=== PATIENT | female | born 1965 | race African-American/Black ===

== ENCOUNTER 2019-04-19 11:51 | Inpatient (IN) ==
[2019-04-19 12:57] LABS: Basophils % 0.3 % (0.0-0.8); Eosinophils # 0.1 10*3/uL (0.0-0.87); Eosinophils % 1.2 % (0.00-10.9); Hematocrit 32.1 VOL% (35.7-47.0); Hemoglobin 10.7 GM/DL (12.0-16.0); Immature Granulocytes % 0.5 %; Immature Granulocytes Absolute 0.03 #; Lymphocytes # 0.7 10*3/uL (1.4-4.0); Lymphocytes % 11.9 % (21.3-54.2); Mean Corpuscular HGB Conc 33.3 GM/DL (32-36); Mean Corpuscular Volume 94.1 FL (87-102); Mean Platelet Volume 8.4 FL (9.6-12.0); Monocytes % 12.9 % (1.7-12.7); Neutrophils % 73.2 % (38.7-73.9); Platelet Count 219 T/CUMM (130-400); Red Blood Count 3.41 MC/CUMM (3.8-5.5); Red Cell Distribution Width 19.6 % (9.3-17.3)
[2019-04-19 14:14] LABS: PT Patient Result 10.8 SECS
[2019-04-19 14:18] LABS: Calcium 9.4 MG/DL (8.5-10.1); Osmolality,Calculated 282.3 MOS/KG (273-304)
[2019-04-19] MEDS ORDERED: ACETAMINOPHEN 325 MG TABLET PO PRN (14:55)
[2019-04-19] MEDS ORDERED: ONDANSETRON 4 MG/2 ML VIAL IV PRN (14:55)
[2019-04-19 15:30] LABS: Albumin 3.6 G/DL (3.4-5.0); Total Protein 7.8 G/DL (6.4-8.3)
[2019-04-19] MEDS ORDERED: LORATADINE 10 MG TABLET PO PRN (15:48)
[2019-04-19 17:39] LABS: RBC,Pleural Fluid 7423 T/CUMM
[2019-04-19] MEDS: MOMETASONE 50 MCG NASAL SPRAY 17 GM BOTTLE BOTH NARES SCH (18:18)
[2019-04-19] MEDS: ENOXAPARIN 40 MG/0.4 ML SYRINGE SUBCUT SCH (22:17)
[2019-04-20 01:17] LABS: Apearance,Urine CLEAR (Clear); Bilirubin,Urine Negative (Negative); Blood, Urine Negative (Negative); Glucose,Urine (UA) Negative (Negative); Ketones,Urine 20 mg/dL (Negative); Mucus,Urine Occasional /LPF (Occasional); Nitrite,Urine Negative (Negative); Protein,Urine Negative; RBC,Urine 1 /HPF (0-4); Squamous Epithelial Cell,Urine Occasional /HPF (0-10); Urine Color Yellow (Yellow); Urine Specific Gravity 1.049 (1.001-1.035); Urine Urobilinogen < 2.0 EU/DL (0.2-1.0); WBC,Urine 2 /HPF (0-6)
[2019-04-20 05:50] LABS: Basophils % 0.2 % (0.0-0.8); Eosinophils % 0.2 % (0.00-10.9); Hematocrit 29.5 VOL% (35.7-47.0); Hemoglobin 9.8 GM/DL (12.0-16.0); Immature Granulocytes % 0.3 %; Immature Granulocytes Absolute 0.02 #; Lymphocytes # 0.7 10*3/uL (1.4-4.0); Lymphocytes % 11.4 % (21.3-54.2); Mean Corpuscular HGB Conc 33.2 GM/DL (32-36); Mean Corpuscular Volume 92.8 FL (87-102); Mean Platelet Volume 8.8 FL (9.6-12.0); Monocytes % 14.7 % (1.7-12.7); Neutrophils % 73.2 % (38.7-73.9); Platelet Count 224 T/CUMM (130-400); Red Blood Count 3.18 MC/CUMM (3.8-5.5); Red Cell Distribution Width 19.7 % (9.3-17.3); White Blood Count 6.3 T/CUMM (4-12)
[2019-04-20 06:17] LABS: Albumin 3.3 G/DL (3.4-5.0); Bilirubin,Total 0.6 MG/DL (0.2-1.0); Calcium 9.2 MG/DL (8.5-10.1); Osmolality,Calculated 278.5 MOS/KG (273-304); Total Protein 7.2 G/DL (6.4-8.3)
[2019-04-20] MEDS: PANTOPRAZOLE 40 MG TABLET PO SCH (09:06)
[2019-04-20] MEDS: METHOCARBAMOL 500 MG TABLET PO PRN ×2 (09:06→16:32)
[2019-04-20] MEDS: MOMETASONE 50 MCG NASAL SPRAY 17 GM BOTTLE BOTH NARES SCH (15:11)
[2019-04-20] MEDS: LIDOCAINE 5% PATCH TRANSDERM SCH (16:22)
[2019-04-20] MEDS: SIMETHICONE CHEW 125 MG TABLET PO PRN (16:23)
[2019-04-20] MEDS: LACTULOSE 20 GM/30 ML UDCUP PO PRN (16:24)
[2019-04-20] MEDS ORDERED: SODIUM PHOSPHATE ENEMA 133 ML BOTTLE RECTAL ONE (16:49)
[2019-04-20] MEDS: ENOXAPARIN 40 MG/0.4 ML SYRINGE SUBCUT SCH (20:55)
[2019-04-21 04:53] LABS: Basophils % 0.3 % (0.0-0.8); Eosinophils # 0.1 10*3/uL (0.0-0.87); Eosinophils % 1.2 % (0.00-10.9); Hemoglobin 10.8 GM/DL (12.0-16.0); Immature Granulocytes % 0.9 %; Immature Granulocytes Absolute 0.05 #; Lymphocytes # 0.7 10*3/uL (1.4-4.0); Lymphocytes % 12.2 % (21.3-54.2); Mean Corpuscular HGB Conc 32.7 GM/DL (32-36); Mean Corpuscular Volume 95.1 FL (87-102); Mean Platelet Volume 8.9 FL (9.6-12.0); Monocytes % 14.5 % (1.7-12.7); Neutrophils % 70.9 % (38.7-73.9); Platelet Count 221 T/CUMM (130-400); Red Blood Count 3.47 MC/CUMM (3.8-5.5); Red Cell Distribution Width 19.6 % (9.3-17.3); White Blood Count 5.8 T/CUMM (4-12)
[2019-04-21 05:20] LABS: Calcium 9.3 MG/DL (8.5-10.1); Osmolality,Calculated 278.4 MOS/KG (273-304)
[2019-04-21 07:17] LABS: Monocytes,Pleural Fluid 1 %
[2019-04-21 07:40] LABS: Lymphocytes,Pleural Fluid 38 %; Neutrophils,Pleural Fluid 53 %
[2019-04-21] MEDS: PANTOPRAZOLE 40 MG TABLET PO SCH (08:51)
[2019-04-21] MEDS: LIDOCAINE 5% PATCH TRANSDERM SCH (08:51)
[2019-04-21] MEDS ORDERED: BISACODYL 10 MG SUPP RECTAL ONE (08:53)
[2019-04-21] MEDS ORDERED: SIMETHICONE CHEW 80 MG TABLET PO ONE (08:54)
[2019-04-21] MEDS: MOMETASONE 50 MCG NASAL SPRAY 17 GM BOTTLE BOTH NARES SCH (08:57)
[2019-04-21] MEDS: LEVOFLOXACIN 750 MG TABLET PO SCH (09:36)
[2019-04-21] MEDS ORDERED: VANCOMYCIN INJ 1,750 MG in SODIUM CHLORIDE 0.9% 500 ML IV ONE (10:00)
[2019-04-21] MEDS: ALBUTEROL/IPRATROPIUM 3 ML NEB RESP TX SCH ×2 (13:15→19:30)
[2019-04-21] MEDS: SIMETHICONE CHEW 125 MG TABLET PO PRN (20:30)
[2019-04-21] MEDS: ENOXAPARIN 40 MG/0.4 ML SYRINGE SUBCUT SCH (20:30)
[2019-04-21] MEDS: LACTULOSE 20 GM/30 ML UDCUP PO PRN (20:30)
[2019-04-22] MEDS: ALBUTEROL/IPRATROPIUM 3 ML NEB RESP TX SCH ×2 (00:08→07:51)
[2019-04-22] MEDS: SIMETHICONE CHEW 125 MG TABLET PO PRN ×3 (00:22→12:36)
[2019-04-22] MEDS: METHOCARBAMOL 500 MG TABLET PO PRN (04:20)
[2019-04-22 05:25] LABS: Basophils % 0.4 % (0.0-0.8); Eosinophils # 0.1 10*3/uL (0.0-0.87); Eosinophils % 1.4 % (0.00-10.9); Hemoglobin 10.4 GM/DL (12.0-16.0); Immature Granulocytes % 1.7 %; Immature Granulocytes Absolute 0.12 #; Lymphocytes # 0.8 10*3/uL (1.4-4.0); Mean Corpuscular HGB Conc 32.5 GM/DL (32-36); Mean Corpuscular Volume 94.7 FL (87-102); Mean Platelet Volume 8.2 FL (9.6-12.0); Monocytes % 11.6 % (1.7-12.7); Neutrophils % 73.9 % (38.7-73.9); Platelet Count 232 T/CUMM (130-400); Red Blood Count 3.38 MC/CUMM (3.8-5.5); Red Cell Distribution Width 19.5 % (9.3-17.3); White Blood Count 7.2 T/CUMM (4-12)
[2019-04-22 05:42] LABS: Calcium 9.1 MG/DL (8.5-10.1); Osmolality,Calculated 281.4 MOS/KG (273-304)
[2019-04-22] MEDS ORDERED: POTASSIUM CHLORIDE 20 MEQ TABLET PO ONE (07:14)
[2019-04-22] MEDS: MOMETASONE 50 MCG NASAL SPRAY 17 GM BOTTLE BOTH NARES SCH (09:07)
[2019-04-22] MEDS: LIDOCAINE 5% PATCH TRANSDERM SCH (09:07)
[2019-04-22] MEDS: PANTOPRAZOLE 40 MG TABLET PO SCH (09:08)
[2019-04-22] MEDS: LEVOFLOXACIN 750 MG TABLET PO SCH (09:08)
[2019-04-22] MEDS ORDERED: VANCOMYCIN INJ 1,750 MG in SODIUM CHLORIDE 0.9% 500 ML IV SCH (10:00)
[2019-04-22 12:29] VITALS: BP 103/65
== END 2019-04-22 12:40 | disposition home or self-care (01) | DRG 598 ==
LOC: N.ED 11:51 → INTOOBSV 14:55 → N.EDINP 14:55 → N.4E 17:18
PROVIDERS: ADMIT Family Medicine; ATTEND Family Medicine

== ENCOUNTER 2019-05-07 01:08 | Inpatient (IN) ==
[2019-05-07] MEDS ORDERED: FUROSEMIDE 40 MG/4 ML VIAL IV STA (02:15)
[2019-05-07] MEDS ORDERED: ONDANSETRON 4 MG/2 ML VIAL IV STA (02:15)
[2019-05-07] MEDS ORDERED: MORPHINE 4 MG/1 ML VIAL IV STA (02:15)
[2019-05-07] MEDS ORDERED: ALBUTEROL/IPRATROPIUM 3 ML NEB RESP TX STA (02:15)
[2019-05-07 03:35] LABS: Albumin 3.6 G/DL (3.4-5.0); Bilirubin,Total 0.5 MG/DL (0.2-1.0); Calcium 9.6 MG/DL (8.5-10.1); Osmolality,Calculated 276.4 MOS/KG (273-304); Total Protein 8.8 G/DL (6.4-8.3)
[2019-05-07 04:42] LABS: Basophils % 0.4 % (0.0-0.8); Eosinophils % 0.4 % (0.00-10.9); Hematocrit 34.8 VOL% (35.7-47.0); Hemoglobin 11.4 GM/DL (12.0-16.0); Immature Granulocytes % 0.7 %; Immature Granulocytes Absolute 0.04 #; Lymphocytes # 0.6 10*3/uL (1.4-4.0); Lymphocytes % 10.5 % (21.3-54.2); Mean Corpuscular HGB Conc 32.8 GM/DL (32-36); Mean Corpuscular Volume 95.9 FL (87-102); Mean Platelet Volume 8.3 FL (9.6-12.0); Monocytes % 17.5 % (1.7-12.7); Neutrophils % 70.5 % (38.7-73.9); Platelet Count 232 T/CUMM (130-400); Red Blood Count 3.63 MC/CUMM (3.8-5.5); Red Cell Distribution Width 19.2 % (9.3-17.3); White Blood Count 5.6 T/CUMM (4-12)
[2019-05-07 04:49] LABS: PT Patient Result 10.7 SECS
[2019-05-07] MEDS ORDERED: guaiFENesin/DM ER 600-30 MG TABLET PO PRN (04:58)
[2019-05-07] MEDS ORDERED: DOCUSATE SODIUM 100 MG CAPSULE PO PRN (04:58)
[2019-05-07] MEDS ORDERED: ONDANSETRON 4 MG/2 ML VIAL IV PRN (04:58)
[2019-05-07] MEDS ORDERED: MORPHINE 4 MG/1 ML VIAL IV PRN (04:58)
[2019-05-07] MEDS ORDERED: ZALEPLON 5 MG CAPSULE PO PRN (04:58)
[2019-05-07] MEDS ORDERED: ACETAMINOPHEN 325 MG TABLET PO PRN (04:58)
[2019-05-07] MEDS ORDERED: ALBUTEROL 2.5 MG/3 ML NEB RESP TX PRN (05:00)
[2019-05-07 05:14] LABS: Lymphocytes 10 % (20-55); Segmented Neutrophils 74 % (50-85); Total Cells Counted 100
[2019-05-07 05:15] LABS: Anisocytosis Slight
[2019-05-07 05:16] LABS: Hypochromasia Slight; Microcytosis Slight; Platelet Estimate Normal
[2019-05-07 05:44] LABS: Apearance,Urine CLOUDY (Clear); Bacteria,Urine Few /HPF (Few); Bilirubin,Urine Negative (Negative); Blood, Urine Small mg/dL (Negative); Calcium Oxalate Crystals,Urine Occasional /HPF (Few); Glucose,Urine (UA) Negative (Negative); Ketones,Urine Negative (Negative); Mucus,Urine Many /LPF (Occasional); Nitrite,Urine Negative (Negative); Protein,Urine 30 MG/DL; RBC,Urine 13 /HPF (0-4); Squamous Epithelial Cell,Urine Occasional /HPF (0-10); Urine Color Yellow (Yellow); Urine Specific Gravity 1.027 (1.001-1.035); Urine Urobilinogen < 2.0 EU/DL (0.2-1.0); WBC,Urine 8 /HPF (0-6)
[2019-05-07] MEDS ORDERED: PNEUMOCOCCAL VACCINE (13 VALENT) 0.5 ML SYRINGE IM ONE (08:13)
[2019-05-07] MEDS ORDERED: SIMETHICONE CHEW 125 MG TABLET PO PRN (08:58)
[2019-05-07 08:59] LABS: Amorphous Crystals,Urine Few /HPF (Few)
[2019-05-07] MEDS: PANTOPRAZOLE 40 MG TABLET PO SCH ×2 (09:13→09:14)
[2019-05-07] MEDS: DOCUSATE/SENNA 50-8.6 MG TABLET PO SCH ×2 (09:14→20:18)
[2019-05-07] MEDS: POLYETHYLENE GLYCOL POWDER 17 GM PACK PO SCH (09:15)
[2019-05-07] MEDS: ENOXAPARIN 40 MG/0.4 ML SYRINGE SUBCUT SCH (09:15)
[2019-05-07 11:55] LABS: Lymphocytes,Pleural Fluid 71 %; Monocytes,Pleural Fluid 13 %; Neutrophils,Pleural Fluid 16 %
[2019-05-07 11:56] LABS: RBC,Pleural Fluid 33107 T/CUMM
[2019-05-08] MEDS ORDERED: FOSFOMYCIN 3 GM PACK PO ONE (09:29)
[2019-05-08] MEDS: DOCUSATE/SENNA 50-8.6 MG TABLET PO SCH (09:44)
[2019-05-08] MEDS: PANTOPRAZOLE 40 MG TABLET PO SCH ×2 (09:44→09:45)
[2019-05-08] MEDS: ENOXAPARIN 40 MG/0.4 ML SYRINGE SUBCUT SCH (09:44)
[2019-05-08] MEDS: POLYETHYLENE GLYCOL POWDER 17 GM PACK PO SCH (09:45)
[2019-05-08] MEDS ORDERED: NITROFURANTOIN MACRO/MONO 100 MG CAPSULE PO SCH (10:30)
[2019-05-08 16:45] VITALS: BP 91/61
[2019-05-11 11:06] LABS: Breast Carcinoma Ag(CA 27.29) 60.5 U/mL (<=38.0)
== END 2019-05-08 17:30 | disposition home or self-care (01) | DRG 598 ==
LOC: N.ED 01:08 → N.EDINP 04:58 → SUATTDRO 04:58 → N.4E 07:50
PROVIDERS: ADMIT Internal Medicine; ATTEND Hospitalist
PROC: IRTHORA (2019-05-07 10:55)

== ENCOUNTER 2019-05-12 15:54 | Inpatient (IN) ==
[2019-05-12] MEDS ORDERED: ONDANSETRON 4 MG/2 ML VIAL IV STA (16:51)
[2019-05-12] MEDS ORDERED: ALBUTEROL/IPRATROPIUM 3 ML NEB RESP TX STA (16:51)
[2019-05-12] MEDS ORDERED: methylPREDNISolone SOD SUC 125 MG/2 ML VIAL IV STA (16:51)
[2019-05-12] MEDS ORDERED: MORPHINE 4 MG/1 ML VIAL IV STA (16:51)
[2019-05-12] MEDS ORDERED: FUROSEMIDE 40 MG/4 ML VIAL IV STA (16:51)
[2019-05-12 17:21] LABS: Basophils % 0.4 % (0.0-0.8); Eosinophils # 0.1 10*3/uL (0.0-0.87); Eosinophils % 1.1 % (0.00-10.9); Hematocrit 37.8 VOL% (35.7-47.0); Immature Granulocytes % 0.7 %; Immature Granulocytes Absolute 0.04 #; Lymphocytes # 0.6 10*3/uL (1.4-4.0); Mean Corpuscular HGB Conc 31.7 GM/DL (32-36); Mean Corpuscular Volume 96.2 FL (87-102); Mean Platelet Volume 8.6 FL (9.6-12.0); Monocytes % 13.1 % (1.7-12.7); Neutrophils % 73.7 % (38.7-73.9); Platelet Count 277 T/CUMM (130-400); Red Blood Count 3.93 MC/CUMM (3.8-5.5); Red Cell Distribution Width 18.1 % (9.3-17.3); White Blood Count 5.7 T/CUMM (4-12)
[2019-05-12 17:33] LABS: INR 0.9
[2019-05-12 17:44] LABS: Alanine Aminotransferase 49 U/L (13-56); Albumin 3.2 G/DL (3.4-5.0); Alkaline Phosphatase 101 U/L (45-117); Aspartate Amino Transferase 65 U/L (0-37); Bilirubin,Total < 0.39 MG/DL (0.2-1.0); Blood Urea Nitrogen 9 MG/DL (7-18); Calcium 9.1 MG/DL (8.5-10.1); Glucose 105 MG/DL (74-106); Osmolality,Calculated 279.3 MOS/KG (273-304); Total Protein 7.4 G/DL (6.4-8.3)
[2019-05-12] MEDS ORDERED: ONDANSETRON 4 MG/2 ML VIAL IV PRN (18:17)
[2019-05-12] MEDS ORDERED: DOCUSATE SODIUM 100 MG CAPSULE PO PRN (18:17)
[2019-05-12] MEDS ORDERED: ACETAMINOPHEN 325 MG TABLET PO PRN (18:17)
[2019-05-12] MEDS ORDERED: PANTOPRAZOLE 40 MG TABLET PO PRN (19:47)
[2019-05-12] MEDS ORDERED: SIMETHICONE CHEW 125 MG TABLET PO PRN (19:47)
[2019-05-12] MEDS ORDERED: FUROSEMIDE 40 MG/4 ML VIAL IV SCH (21:00)
[2019-05-12] MEDS: ENOXAPARIN 40 MG/0.4 ML SYRINGE SUBCUT SCH (21:46)
[2019-05-12] MEDS: LEVOFLOXACIN INJ 500 MG in PREMIX 1 EACH IV SCH (23:34)
[2019-05-13 00:11] LABS: Apearance,Urine CLEAR (Clear); Bilirubin,Urine Negative (Negative); Blood, Urine Small mg/dL (Negative); Glucose,Urine (UA) Negative (Negative); Ketones,Urine Negative (Negative); Mucus,Urine Occasional /LPF (Occasional); Nitrite,Urine Negative (Negative); Protein,Urine Negative; RBC,Urine 1 /HPF (0-4); Squamous Epithelial Cell,Urine Occasional /HPF (0-10); Urine Color Yellow (Yellow); Urine Specific Gravity > 1.060 (1.001-1.035); Urine Urobilinogen < 2.0 EU/DL (0.2-1.0); WBC,Urine <1 /HPF (0-6)
[2019-05-13] MEDS: ALBUTEROL/IPRATROPIUM 3 ML NEB RESP TX SCH ×4 (00:30→20:49)
[2019-05-13] MEDS: PIPERACILLIN/TAZOBACTAM 3,375 MG in SODIUM CHLORIDE 0.9% 100 ML IV SCH ×3 (00:40→17:30)
[2019-05-13 06:28] LABS: Hematocrit 37.7 VOL% (35.7-47.0); Hemoglobin 12.1 GM/DL (12.0-16.0); Immature Granulocytes % 0.6 %; Immature Granulocytes Absolute 0.03 #; Lymphocytes # 0.4 10*3/uL (1.4-4.0); Lymphocytes % 7.4 % (21.3-54.2); Mean Corpuscular HGB Conc 32.1 GM/DL (32-36); Mean Corpuscular Volume 95.7 FL (87-102); Mean Platelet Volume 8.6 FL (9.6-12.0); Monocytes % 2.9 % (1.7-12.7); Neutrophils % 89.1 % (38.7-73.9); Platelet Count 316 T/CUMM (130-400); Red Blood Count 3.94 MC/CUMM (3.8-5.5); Red Cell Distribution Width 17.9 % (9.3-17.3); White Blood Count 5.2 T/CUMM (4-12)
[2019-05-13 06:36] LABS: Calcium 9.7 MG/DL (8.5-10.1); Osmolality,Calculated 278.5 MOS/KG (273-304)
[2019-05-13] MEDS: POTASSIUM CHLORIDE 20 MEQ TABLET PO SCH (08:27)
[2019-05-13] MEDS: FUROSEMIDE 40 MG/4 ML VIAL IV SCH ×2 (08:27→17:30)
[2019-05-13 14:45] LABS: Lymphocytes,Pleural Fluid 12 %; Monocytes,Pleural Fluid 81 %; Neutrophils,Pleural Fluid 7 %
[2019-05-13 14:46] LABS: RBC,Pleural Fluid 19425 T/CUMM
[2019-05-13] MEDS: ENOXAPARIN 40 MG/0.4 ML SYRINGE SUBCUT SCH (21:57)
[2019-05-13] MEDS: LEVOFLOXACIN INJ 500 MG in PREMIX 1 EACH IV SCH (22:00)
[2019-05-14] MEDS: ALBUTEROL/IPRATROPIUM 3 ML NEB RESP TX SCH ×4 (00:23→19:21)
[2019-05-14] MEDS: PIPERACILLIN/TAZOBACTAM 3,375 MG in SODIUM CHLORIDE 0.9% 100 ML IV SCH ×3 (00:48→16:49)
[2019-05-14 05:38] LABS: Basophils % 0.4 % (0.0-0.8); Eosinophils % 0.1 % (0.00-10.9); Hematocrit 35.5 VOL% (35.7-47.0); Hemoglobin 11.8 GM/DL (12.0-16.0); Immature Granulocytes % 0.4 %; Immature Granulocytes Absolute 0.03 #; Lymphocytes # 0.7 10*3/uL (1.4-4.0); Lymphocytes % 8.8 % (21.3-54.2); Mean Corpuscular HGB Conc 33.2 GM/DL (32-36); Mean Corpuscular Volume 95.4 FL (87-102); Mean Platelet Volume 8.8 FL (9.6-12.0); Monocytes % 13.4 % (1.7-12.7); Neutrophils % 76.9 % (38.7-73.9); Platelet Count 305 T/CUMM (130-400); Red Blood Count 3.72 MC/CUMM (3.8-5.5); Red Cell Distribution Width 18.3 % (9.3-17.3); White Blood Count 8.1 T/CUMM (4-12)
[2019-05-14 06:06] LABS: Calcium 6.7 MG/DL (8.5-10.1); Osmolality,Calculated 283.3 MOS/KG (273-304)
[2019-05-14] MEDS: POTASSIUM CHLORIDE 20 MEQ TABLET PO SCH (09:43)
[2019-05-14] MEDS: FUROSEMIDE 40 MG/4 ML VIAL IV SCH ×2 (09:43→16:48)
[2019-05-14] MEDS: POLYETHYLENE GLYCOL POWDER 17 GM PACK PO SCH ×2 (14:17→21:36)
[2019-05-14] MEDS: DOCUSATE SODIUM 100 MG CAPSULE PO SCH ×2 (14:17→21:36)
[2019-05-14] MEDS: ENOXAPARIN 40 MG/0.4 ML SYRINGE SUBCUT SCH (21:36)
[2019-05-14] MEDS: LEVOFLOXACIN INJ 500 MG in PREMIX 1 EACH IV SCH (23:05)
[2019-05-15] MEDS: PIPERACILLIN/TAZOBACTAM 3,375 MG in SODIUM CHLORIDE 0.9% 100 ML IV SCH ×2 (01:08→08:30)
[2019-05-15] MEDS: ALBUTEROL/IPRATROPIUM 3 ML NEB RESP TX SCH ×5 (01:16→20:05)
[2019-05-15 04:11] LABS: Basophils % 0.3 % (0.0-0.8); Eosinophils % 0.3 % (0.00-10.9); Hematocrit 36.9 VOL% (35.7-47.0); Hemoglobin 11.7 GM/DL (12.0-16.0); Immature Granulocytes % 0.5 %; Immature Granulocytes Absolute 0.03 #; Lymphocytes # 0.8 10*3/uL (1.4-4.0); Lymphocytes % 12.3 % (21.3-54.2); Mean Corpuscular HGB Conc 31.7 GM/DL (32-36); Mean Corpuscular Volume 96.3 FL (87-102); Mean Platelet Volume 8.7 FL (9.6-12.0); Monocytes % 16.3 % (1.7-12.7); Neutrophils % 70.3 % (38.7-73.9); Platelet Count 315 T/CUMM (130-400); Red Blood Count 3.83 MC/CUMM (3.8-5.5); Red Cell Distribution Width 17.9 % (9.3-17.3); White Blood Count 6.6 T/CUMM (4-12)
[2019-05-15 04:31] LABS: Calcium 9.3 MG/DL (8.5-10.1); Osmolality,Calculated 277.7 MOS/KG (273-304)
[2019-05-15 04:54] LABS: Lymphocytes 18 % (20-55); Platelet Estimate Normal; Segmented Neutrophils 75 % (50-85); Total Cells Counted 100
[2019-05-15 04:55] LABS: Hypochromasia Slight; Polychromasia Few
[2019-05-15] MEDS: FUROSEMIDE 40 MG/4 ML VIAL IV SCH (08:30)
[2019-05-15] MEDS: POTASSIUM CHLORIDE 20 MEQ TABLET PO SCH (08:31)
[2019-05-15] MEDS: POLYETHYLENE GLYCOL POWDER 17 GM PACK PO SCH ×2 (09:23→21:30)
[2019-05-15] MEDS: DOCUSATE SODIUM 100 MG CAPSULE PO SCH ×2 (09:23→21:30)
[2019-05-15] MEDS: ENOXAPARIN 40 MG/0.4 ML SYRINGE SUBCUT SCH (21:30)
[2019-05-16] MEDS: ALBUTEROL/IPRATROPIUM 3 ML NEB RESP TX SCH ×2 (00:32→07:24)
[2019-05-16 05:31] LABS: Basophils % 0.3 % (0.0-0.8); Eosinophils # 0.1 10*3/uL (0.0-0.87); Eosinophils % 0.8 % (0.00-10.9); Hematocrit 36.7 VOL% (35.7-47.0); Hemoglobin 11.9 GM/DL (12.0-16.0); Immature Granulocytes % 0.8 %; Immature Granulocytes Absolute 0.05 #; Lymphocytes # 0.8 10*3/uL (1.4-4.0); Lymphocytes % 12.9 % (21.3-54.2); Mean Corpuscular HGB Conc 32.4 GM/DL (32-36); Mean Corpuscular Volume 94.6 FL (87-102); Mean Platelet Volume 8.7 FL (9.6-12.0); Monocytes % 13.8 % (1.7-12.7); Neutrophils % 71.4 % (38.7-73.9); Platelet Count 333 T/CUMM (130-400); Red Blood Count 3.88 MC/CUMM (3.8-5.5); Red Cell Distribution Width 17.6 % (9.3-17.3)
[2019-05-16 05:58] LABS: Calcium 9.8 MG/DL (8.5-10.1); Osmolality,Calculated 276.8 MOS/KG (273-304)
[2019-05-16 08:13] VITALS: BP 112/69
[2019-05-16] MEDS: POTASSIUM CHLORIDE 20 MEQ TABLET PO SCH (08:34)
[2019-05-16] MEDS: DOCUSATE SODIUM 100 MG CAPSULE PO SCH (08:34)
[2019-05-16] MEDS: POLYETHYLENE GLYCOL POWDER 17 GM PACK PO SCH (08:34)
[2019-05-16] MEDS ORDERED: FUROSEMIDE 40 MG TABLET PO SCH (09:00)
[2019-05-16] MEDS ORDERED: LEVOFLOXACIN 500 MG TABLET PO SCH (10:00)
[2019-05-16] MEDS ORDERED: POTASSIUM CHLORIDE 20 MEQ TABLET PO ONE (10:01)
[2019-05-16] MEDS ORDERED: guaiFENesin/DM ER 600-30 MG TABLET PO PRN (10:01)
== END 2019-05-16 11:46 | disposition home or self-care (01) | DRG 597 ==
LOC: N.ED 15:54 → N.EDINP 18:15 → N.5E 19:17
PROVIDERS: ADMIT Hospitalist; ATTEND Hospitalist

== ENCOUNTER 2019-05-26 09:47 | Inpatient (IN) ==
[2019-05-26 11:36] LABS: Basophils % 0.1 % (0.0-0.8); Eosinophils % 0.4 % (0.00-10.9); Hematocrit 32.3 VOL% (35.7-47.0); Hemoglobin 10.5 GM/DL (12.0-16.0); Immature Granulocytes % 0.4 %; Immature Granulocytes Absolute 0.03 #; Lymphocytes # 0.6 10*3/uL (1.4-4.0); Lymphocytes % 9.1 % (21.3-54.2); Mean Corpuscular HGB Conc 32.5 GM/DL (32-36); Mean Corpuscular Volume 93.6 FL (87-102); Mean Platelet Volume 8.5 FL (9.6-12.0); Platelet Count 338 T/CUMM (130-400); Red Blood Count 3.45 MC/CUMM (3.8-5.5); Red Cell Distribution Width 17.4 % (9.3-17.3); White Blood Count 6.7 T/CUMM (4-12)
[2019-05-26 11:46] LABS: PT Patient Result 10.4 SECS (9.6-12.2)
[2019-05-26 12:01] LABS: Troponin I < 0.015 NG/ML (0.00-0.045)
[2019-05-26 12:07] LABS: Alanine Aminotransferase 47 U/L (13-56); Alkaline Phosphatase 90 U/L (45-117); Aspartate Amino Transferase 37 U/L (0-37); Bilirubin,Total < 0.39 MG/DL (0.2-1.0); Blood Urea Nitrogen 11 MG/DL (7-18); Calcium 9.4 MG/DL (8.5-10.1); Estimated Glom Filtration Rate 132 ML/MIN; Glucose 93 MG/DL (74-106); Osmolality,Calculated 277.4 MOS/KG (273-304); Total Protein 7.5 G/DL (6.4-8.3)
[2019-05-26] MEDS ORDERED: ACETAMINOPHEN 325 MG TABLET PO PRN (13:41)
[2019-05-26] MEDS ORDERED: guaiFENesin/DM ER 600-30 MG TABLET PO PRN (13:46)
[2019-05-26] MEDS ORDERED: POLYETHYLENE GLYCOL POWDER 17 GM PACK PO PRN (13:46)
[2019-05-26] MEDS ORDERED: SIMETHICONE CHEW 125 MG TABLET PO PRN (13:46)
[2019-05-26] MEDS ORDERED: DOCUSATE SODIUM 100 MG CAPSULE PO PRN (13:46)
[2019-05-26] MEDS: LEVOFLOXACIN INJ 500 MG in PREMIX 1 EACH IV SCH (14:50)
[2019-05-26 20:50] LABS: Apearance,Urine CLEAR (Clear); Bilirubin,Urine Negative (Negative); Blood, Urine Negative (Negative); Glucose,Urine (UA) Negative (Negative); Ketones,Urine Negative (Negative); Nitrite,Urine Negative (Negative); Protein,Urine Negative; Urine Color Straw (Yellow); Urine Specific Gravity 1.009 (1.001-1.035); Urine Urobilinogen < 2.0 EU/DL (0.2-1.0); WBC,Urine <1 /HPF (0-6)
[2019-05-26] MEDS: ENOXAPARIN 40 MG/0.4 ML SYRINGE SUBCUT SCH (20:56)
[2019-05-27 06:13] LABS: Basophils % 0.4 % (0.0-0.8); Eosinophils % 0.6 % (0.00-10.9); Hematocrit 29.9 VOL% (35.7-47.0); Hemoglobin 9.6 GM/DL (12.0-16.0); Immature Granulocytes % 0.6 %; Immature Granulocytes Absolute 0.03 #; Lymphocytes # 0.6 10*3/uL (1.4-4.0); Lymphocytes % 12.1 % (21.3-54.2); Mean Corpuscular HGB Conc 32.1 GM/DL (32-36); Mean Corpuscular Volume 95.5 FL (87-102); Mean Platelet Volume 8.5 FL (9.6-12.0); Monocytes % 14.2 % (1.7-12.7); Neutrophils % 72.1 % (38.7-73.9); Platelet Count 309 T/CUMM (130-400); Red Blood Count 3.13 MC/CUMM (3.8-5.5); Red Cell Distribution Width 17.2 % (9.3-17.3); White Blood Count 4.7 T/CUMM (4-12)
[2019-05-27 06:33] LABS: Calcium 8.9 MG/DL (8.5-10.1); Osmolality,Calculated 278.3 MOS/KG (273-304)
[2019-05-27] MEDS ORDERED: HEPARIN LOCK FLUSH 500 UNIT/5 ML SYRINGE IV PRN (08:50)
[2019-05-27] MEDS: POTASSIUM CHLORIDE 20 MEQ TABLET PO SCH (10:32)
[2019-05-27] MEDS: PANTOPRAZOLE 40 MG TABLET PO SCH (10:33)
[2019-05-27] MEDS: LEVOFLOXACIN INJ 500 MG in PREMIX 1 EACH IV SCH (10:34)
[2019-05-27] MEDS: HEPARIN LOCK FLUSH 500 UNIT/5 ML SYRINGE IV SCH ×2 (11:51→21:05)
[2019-05-27] MEDS: ENOXAPARIN 40 MG/0.4 ML SYRINGE SUBCUT SCH (21:04)
[2019-05-27] MEDS ORDERED: ZALEPLON 5 MG CAPSULE PO PRN (21:49)
[2019-05-28 06:02] LABS: Basophils % 0.4 % (0.0-0.8); Eosinophils % 0.8 % (0.00-10.9); Hematocrit 31.7 VOL% (35.7-47.0); Hemoglobin 10.1 GM/DL (12.0-16.0); Immature Granulocytes % 0.4 %; Immature Granulocytes Absolute 0.02 #; Lymphocytes # 0.7 10*3/uL (1.4-4.0); Lymphocytes % 13.4 % (21.3-54.2); Mean Corpuscular HGB Conc 31.9 GM/DL (32-36); Mean Corpuscular Volume 94.9 FL (87-102); Mean Platelet Volume 8.5 FL (9.6-12.0); Monocytes % 14.6 % (1.7-12.7); Neutrophils % 70.4 % (38.7-73.9); Platelet Count 335 T/CUMM (130-400); Red Blood Count 3.34 MC/CUMM (3.8-5.5); Red Cell Distribution Width 17.2 % (9.3-17.3); White Blood Count 5.1 T/CUMM (4-12)
[2019-05-28 06:08] LABS: Calcium 9.2 MG/DL (8.5-10.1); Osmolality,Calculated 281.1 MOS/KG (273-304)
[2019-05-28] MEDS: POTASSIUM CHLORIDE 20 MEQ TABLET PO SCH (09:51)
[2019-05-28] MEDS: LEVOFLOXACIN INJ 500 MG in PREMIX 1 EACH IV SCH (09:51)
[2019-05-28] MEDS: PANTOPRAZOLE 40 MG TABLET PO SCH (09:51)
[2019-05-28] MEDS: HEPARIN LOCK FLUSH 500 UNIT/5 ML SYRINGE IV SCH (11:03)
[2019-05-28 11:58] VITALS: BP 118/72
== END 2019-05-28 13:55 | disposition home or self-care (01) | DRG 181 ==
LOC: N.ED 09:47 → N.EDINP 13:41 → N.2E 14:39
PROVIDERS: ADMIT Hospitalist; ATTEND Hospitalist

== ENCOUNTER 2019-09-07 19:50 | Inpatient (IN) ==
[2019-09-07] MEDS ORDERED: VANCOMYCIN INJ 1,250 MG in SODIUM CHLORIDE 0.9% 250 ML IV STA (20:58)
[2019-09-07] MEDS ORDERED: MEROPENEM 2,000 MG in SODIUM CHLORIDE 0.9% 100 ML IV STA (20:58)
[2019-09-07] MEDS ORDERED: SODIUM CHLORIDE 0.9% 1,000 ML IV STA (20:58)
[2019-09-07] MEDS ORDERED: ALBUTEROL/IPRATROPIUM 3 ML NEB RESP TX STA (20:58)
[2019-09-07 21:18] LABS: Basophils % 0.3 % (0.0-0.8); Hematocrit 26.2 VOL% (35.7-47.0); Hemoglobin 8.3 GM/DL (12.0-16.0); Immature Granulocytes % 0.3 %; Immature Granulocytes Absolute 0.01 #; Lymphocytes # 0.4 10*3/uL (1.4-4.0); Lymphocytes % 11.3 % (21.3-54.2); Mean Corpuscular HGB Conc 31.7 GM/DL (32-36); Mean Platelet Volume 9.8 FL (9.6-12.0); Monocytes % 26.6 % (1.7-12.7); Neutrophils % 61.5 % (38.7-73.9); Platelet Count 170 T/CUMM (130-400); Red Blood Count 3.01 MC/CUMM (3.8-5.5); Red Cell Distribution Width 17.5 % (9.3-17.3); White Blood Count 3.2 T/CUMM (4-12)
[2019-09-07 21:25] LABS: PT Patient Result 10.7 SECS (9.6-12.2)
[2019-09-07 21:39] LABS: Alanine Aminotransferase 38 U/L (13-56); Albumin 2.8 G/DL (3.4-5.0); Alkaline Phosphatase 130 U/L (45-117); Aspartate Amino Transferase 44 U/L (0-37); Bilirubin,Total < 0.39 MG/DL (0.2-1.0); Blood Urea Nitrogen 13 MG/DL (7-18); Calcium 9.4 MG/DL (8.5-10.1); Estimated Glom Filtration Rate 128 ML/MIN; Glucose 117 MG/DL (74-106); Osmolality,Calculated 270.1 MOS/KG (273-304); Total Protein 7.8 G/DL (6.4-8.3); Troponin I < 0.015 NG/ML (0.00-0.045)
[2019-09-07 21:42] LABS: Lymphocytes 10 % (20-55); Platelet Estimate Adequate; Segmented Neutrophils 61 % (50-85); Total Cells Counted 100
[2019-09-07] MEDS ORDERED: ONDANSETRON 4 MG/2 ML VIAL IV STA (21:50)
[2019-09-07] MEDS ORDERED: fentaNYL 100 MCG/2 ML VIAL IV STA (21:50)
[2019-09-07] MEDS ORDERED: ONDANSETRON 4 MG/2 ML VIAL ONE (21:51)
[2019-09-07] MEDS ORDERED: fentaNYL 100 MCG/2 ML VIAL ONE (21:52)
[2019-09-07] MEDS ORDERED: NICOTINE 21 MG/24 HR PATCH TRANSDERM PRN (22:19)
[2019-09-07] MEDS ORDERED: diphenhydrAMINE CAP 25 MG CAPSULE PO PRN (22:19)
[2019-09-07] MEDS ORDERED: ACETAMINOPHEN 325 MG TABLET PO PRN (22:19)
[2019-09-07] MEDS ORDERED: ALBUTEROL 2.5 MG/3 ML NEB RESP TX PRN (22:19)
[2019-09-07] MEDS ORDERED: SIMETHICONE CHEW 125 MG TABLET PO PRN (23:31)
[2019-09-07] MEDS ORDERED: PANTOPRAZOLE 40 MG TABLET PO PRN (23:31)
[2019-09-07] MEDS ORDERED: POLYETHYLENE GLYCOL POWDER 17 GM PACK PO PRN (23:31)
[2019-09-07] MEDS ORDERED: DOCUSATE SODIUM 100 MG CAPSULE PO PRN (23:31)
[2019-09-07] MEDS ORDERED: guaiFENesin/DM ER 600-30 MG TABLET PO PRN (23:31)
[2019-09-08] MEDS: MORPHINE 4 MG/1 ML VIAL IV PRN ×2 (00:23→19:54)
[2019-09-08] MEDS: SODIUM CHLORIDE 0.9% 1,000 ML IV SCH ×2 (00:30→08:15)
[2019-09-08] MEDS ORDERED: INFLUENZA VIRUS VACCINE 0.5 ML SYRINGE IM ONE (00:57)
[2019-09-08] MEDS: ALBUTEROL/IPRATROPIUM 3 ML NEB RESP TX SCH ×4 (01:18→19:35)
[2019-09-08 05:01] LABS: Apearance,Urine CLEAR (Clear); Bacteria,Urine Occasional /HPF (Few); Bilirubin,Urine Negative (Negative); Blood, Urine Negative (Negative); Glucose,Urine (UA) Negative (Negative); Ketones,Urine Negative (Negative); Mucus,Urine Occasional /LPF (Occasional); Nitrite,Urine Negative (Negative); Protein,Urine Negative; RBC,Urine 1 /HPF (0-4); Squamous Epithelial Cell,Urine Occasional /HPF (0-10); Urine Color Yellow (Yellow); Urine Specific Gravity 1.012 (1.001-1.035); Urine Urobilinogen < 2.0 EU/DL (0.2-1.0); WBC,Urine 1 /HPF (0-6)
[2019-09-08] MEDS ORDERED: VANCOMYCIN INJ 1,250 MG in SODIUM CHLORIDE 0.9% 250 ML IV SCH (06:00)
[2019-09-08] MEDS: POTASSIUM CHLORIDE 20 MEQ TABLET PO SCH (08:10)
[2019-09-08] MEDS: MEROPENEM 1,000 MG in SODIUM CHLORIDE 0.9% 100 ML IV SCH ×2 (08:13→17:12)
[2019-09-08] MEDS: FILGRASTIM-SNDZ 300 MCG/0.5 ML SYRINGE SUBCUT SCH (09:16)
[2019-09-08] MEDS: DORNASE ALFA 2.5 MG/2.5 ML VIAL RESP TX SCH ×2 (13:28→19:45)
[2019-09-08] MEDS: AZITHROMYCIN INJ 500 MG in SODIUM CHLORIDE 0.9% 250 ML IV SCH (17:13)
[2019-09-08] MEDS: VANCOMYCIN INJ 1,250 MG in SODIUM CHLORIDE 0.9% 250 ML IV SCH (19:47)
[2019-09-08] MEDS ORDERED: ENOXAPARIN 40 MG/0.4 ML SYRINGE SUBCUT SCH (21:00)
[2019-09-09] MEDS: ALBUTEROL/IPRATROPIUM 3 ML NEB RESP TX SCH ×4 (00:16→20:26)
[2019-09-09] MEDS: MEROPENEM 1,000 MG in SODIUM CHLORIDE 0.9% 100 ML IV SCH ×3 (00:39→20:33)
[2019-09-09] MEDS ORDERED: methylPREDNISolone SOD SUC 125 MG/2 ML VIAL ONE (04:04)
[2019-09-09] MEDS ORDERED: methylPREDNISolone SOD SUC 125 MG/2 ML VIAL IV ONE (04:11)
[2019-09-09 04:22] LABS: Basophils % 0.2 % (0.0-0.8); Eosinophils % 0.2 % (0.00-10.9); Hemoglobin 7.3 GM/DL (12.0-16.0); Immature Granulocytes % 1.5 %; Immature Granulocytes Absolute 0.07 #; Lymphocytes # 0.5 10*3/uL (1.4-4.0); Lymphocytes % 10.7 % (21.3-54.2); Mean Corpuscular HGB Conc 30.4 GM/DL (32-36); Mean Corpuscular Volume 88.6 FL (87-102); Mean Platelet Volume 9.4 FL (9.6-12.0); Monocytes % 27.9 % (1.7-12.7); NRBC # 0.03 10*3/uL; Neutrophils % 59.5 % (38.7-73.9); Platelet Count 198 T/CUMM (130-400); Red Blood Count 2.71 MC/CUMM (3.8-5.5); Red Cell Distribution Width 17.7 % (9.3-17.3); White Blood Count 4.7 T/CUMM (4-12)
[2019-09-09 04:50] LABS: Band Neutrophils 5 % (0-10); Eosinophils 1 % (0-10); Hypochromasia 1+; Lymphocytes 5 % (20-55); Nucleated Red Blood Cells 1 (0-5); Platelet Estimate Adequate; Segmented Neutrophils 67 % (50-85); Total Cells Counted 100
[2019-09-09 04:51] LABS: Osmolality,Calculated 278.3 MOS/KG (273-304)
[2019-09-09] MEDS: SODIUM CHLORIDE 0.9% 1,000 ML IV SCH ×2 (06:01→11:08)
[2019-09-09] MEDS: MORPHINE 4 MG/1 ML VIAL IV PRN (06:02)
[2019-09-09] MEDS ORDERED: SODIUM CHLORIDE 0.9% 1,000 ML IV PRN (06:21)
[2019-09-09] MEDS: DORNASE ALFA 2.5 MG/2.5 ML VIAL RESP TX SCH ×2 (07:47→20:34)
[2019-09-09 09:13] LABS: Albumin 2.6 G/DL (3.4-5.0); Total Protein 6.7 G/DL (6.4-8.3)
[2019-09-09 09:35] LABS: PT Patient Result 10.7 SECS (9.6-12.2)
[2019-09-09] MEDS: POTASSIUM CHLORIDE 20 MEQ TABLET PO SCH (11:08)
[2019-09-09] MEDS: FILGRASTIM-SNDZ 300 MCG/0.5 ML SYRINGE SUBCUT SCH (11:08)
[2019-09-09] MEDS: VANCOMYCIN INJ 1,250 MG in SODIUM CHLORIDE 0.9% 250 ML IV SCH (11:40)
[2019-09-09] MEDS: FUROSEMIDE 40 MG/4 ML VIAL IV SCH (16:31)
[2019-09-09] MEDS: AZITHROMYCIN INJ 500 MG in SODIUM CHLORIDE 0.9% 250 ML IV SCH (21:06)
[2019-09-10] MEDS: ALBUTEROL/IPRATROPIUM 3 ML NEB RESP TX SCH ×4 (01:29→19:30)
[2019-09-10] MEDS: ONDANSETRON 4 MG/2 ML VIAL IV PRN ×2 (01:32→09:14)
[2019-09-10] MEDS: MEROPENEM 1,000 MG in SODIUM CHLORIDE 0.9% 100 ML IV SCH ×3 (04:47→20:56)
[2019-09-10 05:56] LABS: Basophils % 0.4 % (0.0-0.8); Hematocrit 28.9 VOL% (35.7-47.0); Hemoglobin 9.2 GM/DL (12.0-16.0); Immature Granulocytes % 21.1 %; Immature Granulocytes Absolute 1.47 #; Lymphocytes # 0.8 10*3/uL (1.4-4.0); Lymphocytes % 10.9 % (21.3-54.2); Mean Corpuscular HGB Conc 31.8 GM/DL (32-36); Mean Corpuscular Volume 87.3 FL (87-102); Monocytes % 27.5 % (1.7-12.7); NRBC # 0.05 10*3/uL; Neutrophils % 40.1 % (38.7-73.9); Platelet Count 246 T/CUMM (130-400); Red Blood Count 3.31 MC/CUMM (3.8-5.5); Red Cell Distribution Width 17.7 % (9.3-17.3)
[2019-09-10 06:18] LABS: Calcium 9.6 MG/DL (8.5-10.1); Osmolality,Calculated 284.8 MOS/KG (273-304)
[2019-09-10 06:24] LABS: Anisocytosis 1+; Band Neutrophils 18 % (0-10); Lymphocytes 9 % (20-55); Macrocytosis 2+; Nucleated Red Blood Cells 1 (0-5); Platelet Estimate Normal; Polychromasia Few; Segmented Neutrophils 45 % (50-85); Total Cells Counted 100
[2019-09-10] MEDS: DORNASE ALFA 2.5 MG/2.5 ML VIAL RESP TX SCH ×2 (06:58→19:37)
[2019-09-10] MEDS: FUROSEMIDE 40 MG/4 ML VIAL IV SCH ×2 (09:16→17:31)
[2019-09-10] MEDS: FILGRASTIM-SNDZ 300 MCG/0.5 ML SYRINGE SUBCUT SCH (09:18)
[2019-09-10] MEDS: POTASSIUM CHLORIDE 20 MEQ TABLET PO SCH (09:20)
[2019-09-10] MEDS: AZITHROMYCIN INJ 500 MG in SODIUM CHLORIDE 0.9% 250 ML IV SCH (21:44)
[2019-09-11] MEDS: ALBUTEROL/IPRATROPIUM 3 ML NEB RESP TX SCH ×3 (00:40→12:14)
[2019-09-11] MEDS: MEROPENEM 1,000 MG in SODIUM CHLORIDE 0.9% 100 ML IV SCH ×2 (03:27→12:39)
[2019-09-11 05:32] LABS: Basophils # 0.1 10*3/uL (0.0-0.2); Basophils % 0.6 % (0.0-0.8); Eosinophils % 0.4 % (0.00-10.9); Hematocrit 28.9 VOL% (35.7-47.0); Immature Granulocytes % 10.1 %; Immature Granulocytes Absolute 0.99 #; Lymphocytes # 0.8 10*3/uL (1.4-4.0); Mean Corpuscular HGB Conc 31.1 GM/DL (32-36); Mean Corpuscular Volume 88.1 FL (87-102); Mean Platelet Volume 9.6 FL (9.6-12.0); Monocytes % 23.9 % (1.7-12.7); NRBC # 0.14 10*3/uL; Platelet Count 265 T/CUMM (130-400); Red Blood Count 3.28 MC/CUMM (3.8-5.5); Red Cell Distribution Width 17.6 % (9.3-17.3); White Blood Count 9.8 T/CUMM (4-12)
[2019-09-11 06:09] LABS: Albumin 2.6 G/DL (3.4-5.0); Bilirubin,Total 0.5 MG/DL (0.2-1.0); Calcium 9.7 MG/DL (8.5-10.1); Osmolality,Calculated 278.4 MOS/KG (273-304); Total Protein 7.1 G/DL (6.4-8.3)
[2019-09-11 06:31] LABS: Band Neutrophils 4 % (0-10); Eosinophils 1 % (0-10); Hypochromasia 1+; Lymphocytes 10 % (20-55); Macrocytosis Slight; Nucleated Red Blood Cells 2 (0-5); Platelet Estimate Adequate; Segmented Neutrophils 63 % (50-85); Total Cells Counted 100
[2019-09-11] MEDS: DORNASE ALFA 2.5 MG/2.5 ML VIAL RESP TX SCH (07:17)
[2019-09-11] MEDS ORDERED: SODIUM CHLORIDE 0.9% 1,000 ML IV PRN ×2 (08:39→08:40)
[2019-09-11] MEDS: FUROSEMIDE 40 MG/4 ML VIAL IV SCH (09:19)
[2019-09-11] MEDS: FILGRASTIM-SNDZ 300 MCG/0.5 ML SYRINGE SUBCUT SCH (09:19)
[2019-09-11] MEDS: POTASSIUM CHLORIDE 20 MEQ TABLET PO SCH (09:19)
[2019-09-11] MEDS: MORPHINE 4 MG/1 ML VIAL IV PRN (12:20)
[2019-09-11 13:07] VITALS: BP 106/62
== END 2019-09-11 15:40 | disposition home or self-care (01) | DRG 597 ==
LOC: N.ED 19:50 → N.EDINP 22:19 → N.4E 23:02
PROVIDERS: ADMIT Hospitalist; ATTEND Hospitalist